=== PATIENT | male | born 1950 | race Caucasian/White ===

== ENCOUNTER 2023-03-19 14:59 | Emergency (ER) | payer OTHER, SELFPAY ==
[2023-03-19 15:11] VITALS: BP 156/83; PULSE 63; RESP 18; TEMP 36.5; O2SAT 97; BMI 40.2
--- NOTE | 2023-03-19 15:37 | ED_ITS ---
HPI - General Adult General Chief complaint: Laceration/Wound Stated complaint: lac R thumb Time Seen by Provider: 03/19/23 15:17 Source: patient Mode of arrival: ambulatory Limitations: no limitations History of Present Illness HPI narrative: 72-year-old male presenting today with a laceration to the right thumb with a saw. The saw slipped. He denies any other injury. Last tetanus was 2013. Related Data Home Medications Medication Instructions Recorded Confirmed amlodipine 5 mg tablet 5 mg PO DAILY 03/19/23 03/19/23 atorvastatin 40 mg tablet 40 mg PO DAILY 03/19/23 03/19/23 dapagliflozin propanediol 10 mg 10 mg PO DAILY 03/19/23 03/19/23 tablet (Farxiga) glipizide 10 mg tablet 10 mg PO BID 03/19/23 03/19/23 lisinopril 20 1 tab PO DAILY 03/19/23 03/19/23 mg-hydrochlorothiazide 25 mg tablet metformin 1,000 mg tablet 1,000 mg PO BID 03/19/23 03/19/23 metoprolol tartrate 100 mg tablet 100 mg PO BID 03/19/23 03/19/23 Allergies Allergy/AdvReac Type Severity Reaction Status Date / Time No Known Drug Allergies Allergy Verified 03/19/23 15:13 Review of Systems Status of ROS: Reports: 6 or more systems reviewed and unremarkable except as noted in History and below [facility] Social History Smoking Status: Never smoker Do you use any of these nicotine containing products: None Second hand tobacco smoke exposure: No How often do you have a drink containing alcohol: 2-3 times a week How many standard drinks containing alcohol do you have on a typical day: 1 or 2 How often do you have six or more drinks on one occasion: Never AUDIT-C Alcohol total score: 3 Non-prescribed substance use: denies use service: No Exam Narrative: Exam Narrative: Well-nourished well-developed patient in no acute distress. Alert and oriented. Answers questions appropriately. Mood and affect are appropriate. Thoughts are goal oriented and rational. No tangential or magical thinking noted. Patient speaks in full sentences without needing to catch his breath. HEENT: Normocephalic atraumatic. Pupils are equally round reactive to light. Extraocular muscles are intact. Conjunctivae are moist without any icterus noted. Moist mucous membranes. Extremity: Patient has approximately a 1 inch laceration on the he medial right thumb next to the nail and extending down a to just distal to the interphalangeal joint. At the base of the laceration there is a chunk of skin that is missing, approximately 6-7 mm in diameter. Laceratio n is fairly superficial penetrating through the dermis just into the subcutaneous tissue. The area with skin missing is just the dermis. Const: Vital Signs, click to edit/add: Vital Signs - 24 hr 03/19/23 15:11 Temperature 97.7 F Pulse Rate [Right Pulse Oximeter] 63 Respiratory Rate 18 Blood Pressure [Ri ght Upper Arm] 156/83 H Pulse Oximetry 97 Oxygen Delivery Me thod Room Air Course Course ED Course: Thumb was irrigated. Laceration was anesthetized with lidocaine. The laceration was cleaned and explored. Three sutures with 3-0 Ethilon were placed on the laceration. The small area with skin missing we were unable to put back together, this area should heal up properly by secondary intention. Tetanus shot updated. Vital Signs Vital signs: Initial Vital Signs Temperature 97.7 F 03/19/23 15:11 Temperature Source Temporal Artery Scan 03/19/23 15:11 Pulse Rate 63 03/19/23 15:11 Respiratory Rate 18 03/19/23 15:11 Blood Pressure 156/83 H 03/19/23 15:11 Blood Pressure Mean 107 H 03/19/23 15:11 Blood Pressure Position Sitting 03/19/23 15:11 Pulse Oximetry 97 03/19/23 15:11 Oxygen Delivery Method Room Air 03/19/23 15:11 Vital Signs Temperature 97.7 F 03/19/23 15:11 Pulse Rate 63 03/19/23 15:11 Respiratory Rate 18 03/19/23 15:11 Blood Pressure 156/83 H 03/19/23 15:11 Pulse Oximetry 97 03/19/23 15:11 Oxygen Delivery Method Room Air 03/19/23 15:11 Temperature 97.7 F 03/19/23 15:11 Pulse Rate 63 03/19/23 15:11 Respiratory Rate 18 03/19/23 15:11 Blood Pressure 156/83 H 03/19/23 15:11 Pulse Oximetry 97 03/19/23 15:11 Oxygen Delivery Method Room Air 03/19/23 15:11 Medical Decision Making MDM Narrative Medical decision making narrative: Laceration treated per above. We discussed wound hygiene, signs symptoms of infection and reasons for follow-up. Suture removal in approximately 1 week. Discharge Plan Discharge Clinical Impression: Laceration Patient Disposition: Home, Self-Care Condition: Stable Additional Instructions: Keep the thumb clean and dry. Okay to shower like you normally would. But do not soak the thumb. Sutures should be removed in approximately 1 week in the clinic with your primary care provider. If the thumb becomes bright red or if there is purulent drainage from the laceration, return to the ER for possible infection. Prescriptions: No Action atorvastatin 40 mg tablet 40 mg PO DAILY metoprolol tartrate 100 mg tablet 100 mg PO BID glipizide 10 mg tablet 10 mg PO BID amlodipine 5 mg tablet 5 mg PO DAILY metformin 1,000 mg tablet 1,000 mg PO BID lisinopril-hydrochlorothiazide 20-25 mg tablet 1 tab PO DAILY Farxiga 10 mg tablet 10 mg PO DAILY Stand Alone Forms: [employer] Info Instructions
== END 2023-03-19 15:51 | disposition home or self-care (01) ==
LOC: ED 15:49
PROVIDERS: Emergency Provider Family Medicine; PCP Family Medicine
DX: S61.011A Laceration without foreign body of right thumb without damage to nail, initial encounter (principal); W27.0XXA Contact with workbench tool, initial encounter; Z23 Encounter for immunization
CPT/HCPCS: 12001; 90471; 99284

== ENCOUNTER 2024-05-19 01:18 | Emergency (ER) | payer MEDICARE, SELFPAY ==
--- OUTSIDE RECORDS SUMMARY | 2024-05-19 01:20 | XMS_ITS | Clinical Summary ---
Author Organization [facility] Address [address] [place] [address] Care Team Providers Care Business Writer Name Role Phone Mir Tejada MD Primary Care Provider Unava ilable Source Comments You are receiving this document as you are listed as the primary care provider,follow-up provider, or the patient has been referred to you for consultation.This is in compliance with the Medicare and[facility] EHR Incentive Program,which states Providers who transition their patient to another setting of careor provider of care or refers their patient to another provider of care shouldprovide summary care record for each transition of care or referral. [employer]New [facility] At [facility] VegasYouLike Allergies No known active allergies Medications aspirin, enteric-coated 81 MG enteric coated tablet Take 81 mg by mouth. 04/14/2011 Active atorvastatin (LIPITOR) 40 MG tablet Take 40 mg by mouth. 06/04/2016 Active lisinopril-hydro chlorothiazide (PRINZIDE;ZESTOR ETIC) 20-25 MG tablet Take 1 Tab by mouth. 06/04/2016 Active glipiZIDE (GLUCOTROL) 10 MG tablet Take 10 mg by mouth. 06/04/2016 Active metFORMIN (GLUCOPHAGE) 1000 MG tablet Take 1,000 mg by mouth. 06/04/2016 Active metoprolol tartrate (LOPRESSOR) 100 MG tablet Take 100 mg by mouth. 06/04/2016 Active multivitamin (THERAGRAN) tablet Take by mouth. 01/31/2007 Active DOCOSAHEXAENOIC ACID OR Take 1,200 mg by mouth. 04/25/2009 Active sildenafil (VIAGRA) 100 MG tablet Take 100 mg by mouth. 04/10/2016 Active Active Problems Problem Noted Date Diagnosed Date Paroxysmal atrial fibrillation 04/14/2011 Type 2 diabetes mellitus with obesity 01/31/2007 Hyperlipidemia 01/31/2007 Hypertension 01/31/2007 Immunizations Immunization Administration Dates Next Due Td 03/26/1993 Social History Tobacco Use Types Packs/Day Years Used Date Smoking Tobacco: Never Alcohol Use Standard Drinks/Week Comments Not Asked 0 (1 standard drink = 0.6 oz pur e alcohol) AUDIT-C Answer Date Recorded Frequency of Alcohol Consumption Never 10/05/2018 Average Number of Drinks Not on file 019 Frequency of Binge Drinking Not on file 09/16 Sex and Gender Information Value Date Recorded Sex Assigned at Not on file Legal Sex Male 3:59 AM CDT Gender Identity Not on file Sexual Orientation Not on file Last Filed Vital Signs Vital Sign Reading Time Taken Comments Blood Pressure 157/95 01/04/2018 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 Pulse 74 01/04/2018 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 Temperature - - Respiratory Rate - - Oxygen Saturation - - Inhaled Oxygen Concentration - - Weight - - Height - - Body Mass Index - - Plan of Treatment Health Maintenance Due Date Last Done Comments Diabetes: Foot Exam 1950 Diabetes: Urine Microalbumin 1950 Hep C Screening (Preventive Services) 1950 Adult Preventive Visit 03/26/1994 03/26/1993 Diabetes: Eye Exam 11/25/1995 11/24/1994, 11/24/1994 Diabetes: Creatinine 09/26/1999 09/25/1998 Diabetes: Lipid Panel 09/26/2003 09/25/1998 Colon Cancer Screening Plan Due 12/04/2011 12/03/2011 Diabetes: HGBA1C 01/14/2019 07/15/2018 Pneumococcal 50+ Yrs (3 of 3 - PCV) 04/10/2021 04/10/2016, 03/27/2014 DTaP/Tdap/Td (2 - Tdap) 07/01/2023 07/01/19 14, 09/19/2003, 03/26/1993 COVID-19 Vaccine (3 - season) 2023 05/10/2020, 04/19/2020 Influenza (#1) 2023 11/01/2019, 02/2018, 12/16/2017, Additional history exists RSV (1 - 1-dose 75+ series) 07/27/2026 Zoster/Shingles Completed 05/24/2018, 08/2018, 06/25/2011 HepA Aged Out No longer eligi ble based on patient's age to complete this topic HepB Aged Out No longer eligi ble based on patient's age to complete this topic Hib Aged Out No longer eligi ble based on patient's age to complete this topic IPV (Polio) Aged Out No longer eligi ble based on patient's age to complete this topic MCV4 Aged Out No longer eligi ble based on patient's age to complete this topic Meningococcal B Aged Out No longer el igible based on patient's age to complete this topic Procedures Procedure Name Priority Date/Time Associated Diagnosis Comments CREATININE Routine 09/25/1998 11:33 AM CDT LIPID PANEL, FAST > 12 HOUR Routine 09/25/1998 11:33 AM CDT from Last 3 Months or Most Recently Relevant to Health Maintenance Results * (ABNORMAL) CHOLESTEROL LIPID PANEL FAST >12HR FAST (09/25/1998 11:33 AM CDT) Cholesterol 209(H) <200 mg/dl [facility] Cholesterol Result should not be interpreted without the patient's history of cardiovascular risk factors. [facility] Triglyceride 390(H) <200 mg/dl [facility] HDL 39 >35 mg/dl [facility] LDL, Calc. 92 mg/dl [facility] Hours Fasting 18 hours [facility] 09/25/1998 11:3 3 AM CDT 09/25/1998 11:34 AM CDT us Barney Akhtar MD LAB_1 Final Result [facility] [address] [id number] * CREATININE (09/25/1998 11:33 AM CDT) Creatinine 1.0 0.5 - 1.2 mg/dl [facility] 09/25/1998 11:3 3 AM CDT 09/25/1998 11:34 AM CDT Barney Akhtar MD LAB_1 Final Result Performing Organization Address City/State/[facility] Co de Phone Number [facility] [address] [place] [phone] from Last 3 Months or Most Recently Relevant to Health Maintenance Insurance [employer]V [employer] Care Teams Business Writer Relationship Specialty Start Date End Date Mir Tejada MD PCP - General Nephrology 12/14/16
--- OUTSIDE RECORDS SUMMARY | 2024-05-19 01:21 | XMS_ITS | Clinical Summary ---
Author Organization [facility] Address [address] [place] [address] Care Team Providers Care Integrated Program Teacher Name Role Phone Mathew Cunningham MD Primary Care Provider Allergies No known active allergies Medications MULTIVITAMIN TAB take 1 tablet by oral route once daily with food 0 02/01/20 07 Active [id number]-[id number] sh Oil 1,200 (144-216) mg CapIndications:Oth er and unspecified hyperlipidemia Take 1,200 mg by mouth once daily. 60 Cap 3 04/26/19 10 Active lancets (ACCU-CHEK MULTICLIX LANCET)Indications :Type II or unspecified type diabetes mellitus without mention of complication, not stated as uncontrolled (HC) As directed. Test 3 times a day 102 Each 5 03/31/19 12 Active blood sugar diagnostic (ACCU-CHEK ERIC PLUS) stripIndications:T ype II or unspecified type diabetes mellitus without mention of complication, not stated as uncontrolled (HC) As directed. Test 3 times a day. 100 Strip 5 03/31/19 12 Active sildenafil citrate (VIAGRA) 100 mg tabletIndications: Erectile dysfunction, unspecified erectile dysfunction type Take 1 tablet by mouth once daily if needed for Erectile Dysfunction . Take 30min to 4 hours before sexual activity. Max 100mg/24hr. 20 tablet 6 11/01/19 20 Active prednisoLONE acetate 1% ophthalmic (ECONOPRED PLUS, PRED FORTE, OMNIPRED) suspensionIndicati ons:Nuclear sclerotic cataract of both eyes START DROPS IN AFFECTED EYE AFTER SURGERY, LEFT EYE 12/09/2023 RIGHT EYE 12/23/2023 . ONE DROP FOUR TIMES A DAY FOR THREE WEEKS. 5 mL 2 12/09/19 24 Active ketorolac 0.4 % (ACULAR LS) 0.4 % ophthalmic solutionIndication s:Nuclear sclerotic cataract of both eyes START DROPS IN AFFECTED EYE AFTER SURGERY, LEFT EYE 12/09/2023 RIGHT EYE 12/23/2023 . ONE DROP FOUR TIMES A DAY FOR THREE WEEKS. 5 mL 2 12/09/19 24 Active apixaban (ELIQUIS) 5 mg tabletIndications: Atrial fibrillation, unspecified type (HC) Take 1 Tablet (5 mg) by mouth two times daily. 180 Tablet 3 12/10/19 Active amLODIPine (NORVASC) 5 mg tabletIndications: Benign essential HTN Take 1 Tablet (5 mg) by mouth once daily. 90 Tablet 3 12/15/19 24 Active atorvastatin (LIPITOR) 40 mg tabletIndications: Mixed hyperlipidemia Take 1 Tablet (40 mg) by mouth once daily. 90 Tablet 3 12/15/19 24 Active dapagliflozin propanediol (Farxiga) 10 mg tabletIndications: Controlled type 2 diabetes mellitus without complication, without long-term current use of insulin (HC) Take 1 Tablet (10 mg) by mouth once daily. 90 Tablet 1 12/15/19 24 Active lisinopril-hydroch lorothiazide, 20-25 mg, (PRINZIDE, ZESTORETIC) 20-25 mg per tabletIndications: Hypertension, unspecified type Take 1 Tablet by mouth once daily. 90 Tablet 3 12/15/19 24 Active metFORMIN (GLUCOPHAGE) 1,000 mg tabletIndications: Controlled type 2 diabetes mellitus without complication, without long-term current use of insulin (HC) Take 1 Tablet (1,000 mg) by mouth two times daily with meals. 180 Tablet 1 12/15/19 24 Active metoprolol tartrate (LOPRESSOR) 100 mg tabletIndications: Hypertension, unspecified type Take 1 Tablet (100 mg) by mouth two times daily. 180 Tablet 3 12/15/19 24 Active glipiZIDE 10 mg tabletIndications: Controlled type 2 diabetes mellitus without complication, without long-term current use of insulin (HC) Take 1 Tablet (10 mg) by mouth two times daily before meals. 180 Tablet 03/26/20 25 Active glipiZIDE (GLUCOTROL) 10 mg tabletIndications: Controlled type 2 diabetes mellitus without complication, without long-term current use of insulin (HC) TAKE 1 TABLET (10 MG) BY MOUTH TWO TIMES DAILY BEFORE MEALS. 180 Tablet 01/08/20 24 025 Discontinued Active Problems Problem Noted Date Diagnosed Date Subclinical hyperthyroidism 12/15/2023 Benign prostatic hyperplasia with incomplete bladder emptying 06/28/2023 Elevated PSA 06/27/2023 Positive for macroalbuminuria 11/26/2021 Controlled type 2 diabetes m ellitus without complication, without long-term current use of insulin 06/02/2017 Colon polyps 06/25/2011 Overview (04/24/2022): Colonoscopy 11/2011 polyp repeat in 5 years Colonoscopy 12/2016 polyp repeat in 5 years Colonoscopy 04/2022 TA, repeat in 7 years Morbid obesity 06/25/2011 Periumbilical hernia 05/08/2010 Other seborrheic keratosis 09/06/2009 Benign essential HTN 01/31/2007 Hyperlipidemia 01/31/2007 Resolved Problems Problem Noted Date Diagnosed Date Resolved Date Urinary tract infection without hematuria 06/28/2023 12/15/2023 Diabetes mellitus type 2 in obese 01/26/2019 11/01/2019 Paroxysmal atrial fibrillation 04/14/2011 10/09/2020 Atrial fibrillation 03/05/2011 04/14/19 12 Erectile dysfunction 04/25/2009 022 Routine general medical exam ination at a health care facility 03/16/2008 04/25/2009 Special screening for malign ant neoplasm of prostate 03/16/2008 04/25/2009 Special screening for malign ant neoplasms, colon 03/16/2008 04/25/2009 Overview (03/16/2008): Recheck 2012 Obesity, unspecified 01/31/2007 012 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 01/31/2007 04/25/2009 Diabetes mellitus type 2 in obese 01/31/2007 06/02/2017 Ingrowing nail 01/20/2007 03/16/2008 DERMATITIS, ECZEMATOUS, EYELID-OS 05/01/2003 03/16/2008 Encounters Date Type Department Care Team Description 05/09/2024 Refill [facility] [address] [address] Mathew Cunningham MD Refill Request (Glipizide) from Last 3 Months Immunizations Immunization Administration Dates Next Due COVID-19 vaccine (Pfizer-Bio NTech 30mcg/0.3mL) 12YO+ BIVALENT PF, MDV 11/11/2021 COVID-19 vaccine (Pfizer-Bio NTech 30mcg/0.3mL) 12YO+ FAYE-SUCROSE PF, MDV 05/21/2021 COVID-19 vaccine (Pfizer-Bio NTech 30mcg/0.3mL) PF, MDV 11/09/2020,05/10/2020,04/19/2020 Hepatitis B (Adult) 01/26/2002,08/10/2001,2001 Influenza A (H1N1), Inactivated 02/11/2009 Influenza A (H1N1), Inactiva raheem (Age >=3 Years) 01/15/2009 Influenza Virus, Unspecified 11/26/2021 Influenza, High-dose Inactivated 024,11/28/2018,12/16/2017,11/22 Influenza, IIV3 (Age >=3 years) 12/16/19 13,10/30/2011,12/17/2010,11/15,12/31/2007,12/16/2006 Influenza, IIV4 11/16/2015,11/16/2014 Influenza, IIV4 (=>6mos) MDV 11/25/2016 Influenza, Inactivated AIIV4 (Age 65+ Years) Preserv Free 11/26/2022,11/26/2021,11/09/2020,10/31 Influenza, Inactivated IIV3 (Age 65+ Years) Preserv Free 11/15/2016 Pneumococcal Conj 20-valent (Prevnar 20) 05/13/2022 Pneumococcal Poly,23-Valent (Pneumovax) 04/10/2016 Pneumococcal conj 13-Valent (Prevnar 13) 03/27/2014 RSV, Recombinant ADJ Reconst ituted (Arexvy 120MCG/0.5mL) 12/09/2022 Td (Age >=7 Years) 09/19/2003,03/26/1993 Tdap 06/30/2013 Zoster (Shingrix-RZV, recombinant) 05/24/2018, Zoster (Zostavax-ZVL, live) 06/25/2011 Family History Medical History Relation Name Comments Other Brother 4 brother with he art valve, CLL, at 75. Diabetes Mother Other Mother d84 lung ca, sm oker Diabetes Sister 1 at 73, fro m covid. Diabetes Sister 2 Diabetes Sister 5 Anesthesia Problem No Family History Cancer-colon No Family History Cancer-prostate No Family History Relation Name Status Comments Brother 1 Alive Brother 2 Alive Brother 3 Alive Brother 4 Father Alive Mother Sister 1 Alive Sister 2 Alive Sister 3 Alive Sister 4 Alive Sister 5 Social History Tobacco Use Types Packs/Day Years Used Date Smoking Tobacco: Never Smokeless Tobacco: Never Tobacco Cessation:Counseling Given: Yes Alcohol Use Standard Drinks/Week Comments Yes 1 (1 standard drink = 0.6 oz pur e alcohol) 12 per month PHQ-2 Answer Date Recorded PHQ-2 TOTAL SCORE 0 12/15/2023 Social Connections Answer Date Recorded Do you often feel lonely or isolated from those around you? 0 04/10/2023 Financial Resource Strain Answer Date R ecorded Difficulty of Paying Living Expenses 3 04/10/2023 Difficulty of Paying Living Expenses Not on file 04/10/2023 Food Insecurity Answer Date Recorded Do you worry your food will run out before you are able to buy more? 1 04/10/2023 Transportation Needs Answer Date Record ed Does lack of transportation keep you from medica l appointments? 1 04/10/2023 Does lack of transportation keep you from work, meetings or getting things that you need? 1 04/10/2023 Housing Stability Answer Date Recorded What is your housing situation today? 1 04/10/2023 Utilities Answer Date Recorded Do you have trouble paying f or utilities (for example, heat, electricity, water, phone)? 1 04/10/2023 Sex and Gender Information Value Date Recorded Sex Assigned at Not on file Legal Sex Male 5:44 AM BUNCH BREAKER Gender Identity Not on file Sexual Orientation Not on file Obstetrics History Last Filed Vital Signs Vital Sign Reading Time Taken Comments Blood Pressure 127/79 01/07/2024 11:43 AM BUNCH BREAKER Pulse 79 01/07/2024 11:43 AM BUNCH BREAKER Temperature 36.2 C (97.2 F) 12/09/2023 7:50 AM CDT Respiratory Rate 16 12/23/2023 9:23 AM BUNCH BREAKER Oxygen Saturation 96% 01/07/2024 11:43 AM BUNCH BREAKER Inhaled Oxygen Concentration - - Weight 126.6 kg (279 lb) 01/07/2024 11:43 AM BUNCH BREAKER Height 173.9 cm (5' 8.47) 12/15/2023 8:11 AM CD T Body Mass Index 41.85 12/15/2023 8:11 AM CDT Plan of Treatment Upcoming Encounters Date Type Department Care Team (Late st Contact Info) Description 07/24/2024 9:40 AM CDT Office Visit [facility] [address] [place] [address] Jermaine Baker MD [address] [place] [address] Health Maintenance Due Date Last Done Comments Tetanus booster 07/01/2023 06/30/2013, 05/2003, 03/26/1993 COVID-19 vaccine series ( season) 2023 11/26/2022, 11/11/2021, 05/21/2021, Additional history exists BMI (ht and wt on same day) for age 18+ 12/14/2024 12/15/2023, 12/03/2023, 06/16/2023, Additional history exists Medicare Wellness for age 65+ 12/15/2024, 11/26/2021, 01/20/2018 Depression screening for age 12+ 12/16/2024 12/17/2023, 12/15/2023, 11/26/2021, Additional history exists Lipids for age 45-75 12/09/2028 12/10/2023, 12/09/2022, 11/25/2021, Additional history exists Colonoscopy through age 75 04/21/202904/21, 04/21/2022, 04/21/2022, Additional history exists Tdap Completed 06/30/2013, 06/30/2013 Hepatitis C screening for ag e 18-79 Completed 11/16/2014 Zoster (shingles) series for age 50+ Completed 05/24/2018, 02/21/2018, 06/25/2011 Pneumococcal series for age 50+ Completed 05/13/2022, 04/10/2016, 03/27/2014 RSV vaccine for adults or Completed 12/09/2022 Influenza Vaccine Completed 11/23/2023, , 11/26/2021, Additional history exists Medical Devices Implanted Type Area [employer]eral [employer] Licensee Device Identifier Shelf Expiration Date Model / Serial / Lot Iol Multi +21.5 [facility] [id number] Implanted:Qty: 1 on 12/09/2023 by Doroteo Willis MD at [facility] Left: Eye [employer] 03/27/2027 CCWET0.215 / [id number] / NA Iol Multi +20.0 [facility] [id number] Implanted:Qty: 1 on 12/23/2023 by Doroteo Willis MD at [facility] Right: Eye [employer] 03/24/2027 CCWET0.200 / [id number] / NA Procedures Procedure Name Priority Date/Time Associated Diagnosis Comments LIPID PANEL W REFLEX MEASURED LDL Routine 12/10/2023 2:17 PM CDT Controlled type 2 diabetes mellitus without complication, without long-term current use of insulin (HC) COLONOSCOPY SCREENING Routine 04/21/2022 8:28 AM BUNCH BREAKER History of colon polyps ANTI HCV Routine 11/16/2014 9:48 AM CDT Need for hepatitis C screening test from Last 3 Months or Most Recently Relevant to Health Maintenance Results * (ABNORMAL) LIPID PANEL W REFLEX MEASURED LDL (12/10/2023 2:17 PM CDT) CHOLESTEROL, TOTAL 124 <200 mg/dL [facility] HDL CHOLESTEROL 38(L) > OR = 40 mg/dL [facility] TRIGLYCERIDES 145 <150 mg/dL [facility] LDL-CHOLESTEROL 63 mg/dL (calc) [facility] Comment: Reference range: <100 Desirable range <100 mg/dL for primary prevention; <70 mg/dL for patients with CHD or diabetic patients with > or = 2 CHD risk factors. LDL-C is now calculated using the Saud calculation, which is a validated novel method providing better accuracy than the Friedewald equation in the estimation of LDL-C. Luiz SUMNER et al. RIC. 2013;310(19): 0831-9945 (http://education.NeuroNascent/faq/YIL203) CHOL/HDLC RATIO 3.3 <5.0 (calc) [facility] NON HDL CHOLESTEROL 86 <130 mg/dL (calc) [facility] Comment: For patients with diabetes plus 1 major ASCVD risk factor, treating to a non-HDL-C goal of <100 mg/dL (LDL-C of <70 mg/dL) is considered a therapeutic option. Blood BLOOD SPECIMEN / Unknown 12/10/2023 2:17 PM CDT 12/10/2023 2:17 PM CDT Mathew Cunningham MD CHEMISTRY Final Result MyCheck [facility] [address] [place] [address], [facility] [address] [place] [address] * COLONOSCOPY (04/21/2022 8:54 AM BUNCH BREAKER) 04/21/2022 8:54 AM BUNCH BREAKER Narrative Transcriptions Luiz Romero MD - 04/21/2022 10:03 AM CST Patient Name: Kev Shannon Procedure Date: 04/21/2022 Gender: Male Date of : 1950 Admit Type: Outpatient Procedure: Colonoscopy Proceduralist: Luiz Romero MD , Cheri Zuluaga (Nurse), Gisselle Ashley (Nurse) Referring MD: Mathew Cunningham Indications/Pre-Op Diagnosis: High risk colon cancer surveillance:Personal history of adenoma less than 10 mm in size, Last colonoscopy: December 2016 Medications: Fentanyl 100 micrograms IV, Midazolam 2 mgIV, The level of sedation administered wasmoderate Procedure Description: The patient had risks, benefits and alternatives explained to andgave informed consent. The patient had a stable cardiopulmonary status and judged an adequate candidate for conscious sedation. The endoscope [id number] was passed through the anus andadvanced to the cecum, identified by appendiceal orifice and ileocecal valve.The colonoscopy was performed without difficulty. The patient toleratedthe procedure well. The quality of the bowel preparation was good. The ileocecal valve, appendiceal orifice, and rectum were photographed. Complications: No immediate complications. Estimated Blood Loss & Specimen: Estimated blood loss: none. Specimen collected - Yes and sent to Laboratory Findings: The perianal and digital rectal examinations were normal. A 2 mm polyp was found in the transverse colon. The polyp wassessile. The polyp was removed with a cold biopsy forceps. Resection and retrieval were complete. Two sessile polyps were found in the transverse colon. The polypswere 3 to 4 mm in size. These polyps were removed with a cold snare.Resection was complete, but the polyp tissue was only partially retrieved. The exam was otherwise without abnormality on direct and retroflexion views. Impressions/Post-Op Diagnosis: - One 2 mm polyp in the transverse colon, removed with a cold biopsy forceps. Resected and retrieved. - Two 3 to 4 mm polyps in the transverse colon, removed with a cold snare. Complete resection. Partial retrieval. - The examination was otherwise normal on direct and retroflexionviews. Recommendation: - Patient has a contact number available for emergencies. The signsand symptoms of potential delayed complications were discussed with the patient. Return to normal activities tomorrow. Written discharge instructions were provided to the patient. - Resume previous diet. - Continue present medications. - Await pathology results. - Repeat colonoscopy for surveillance based on pathology results. Moderate Sedation: A time out was performed before the procedure. Moderate (conscious) sedation was administered by the endoscopy nurse and supervised bythe endoscopist. The following parameters were monitored: oxygensaturation, heart rate, blood pressure, EKG, CO2, respiratory rate, adequacy of pulmonary ventilation and reponse to care. Please refer to the patient's medical record flowsheets and nursing notes for moderate sedation details. Total physician intraservice time was 18 minutes. Luiz Romero MD 04/21/2022 10:03:30 AM This report has been signed electronically. Note Initiated On: 04/21/2022 8:54 AM Procedure Code(s): --- Professional --- 54339, Colonoscopy, flexible; with removalof tumor(s), polyp(s), or other lesion(s) bysnare technique 76032, 59, Colonoscopy, flexible; withbiopsy, single or multiple Diagnosis Code(s): --- Professional --- D12.3, Benign neoplasm of transverse colon (hepatic flexure or splenic flexure) Z86.010, Personal history of colonicpolyps CPT copyright 2020 [employer]. All rights reserved. The codes documented in this report are preliminary and upon fifth grade teacher reviewmay be revised to meet current compliance requirements. Scope In: 9:39:50 AM Scope Withdrawal Time 0 hours 13 minutes 22 seconds Scope Out: 9:56:14 AM us Luiz Romero MD PROCEDURE ORD Final Res ult * ANTI HCV [16897.2] (11/16/2014 9:48 AM CDT) HEPATITIS C ANTIBODY Non-Reacti ve Non-Reacti ve 11/16/2014 5:58 PM CDT [facility] Blood specimen (specimen) BLOOD SPECIMEN / Unknown Venipuncture / Unknown 11/16/2014 9:48 AM CDT 11/16/2014 9:48 AM CDT Narrative [facility] - 11/16/2014 5:58 PM CDT Antibodies to HCV not detected; does not exclude the possibility of exposure to HCV. us Mir Tejada MD SEND OUTS Final Result [facility] [address] [place] [address], [place] from Last 3 Months or Most Recently Relevant to Health Maintenance Insurance [facility] [employer] MR MEDICARE PART A HB ONLY Advance Directives Documents on File Type Date Recorded Patient Chaplain Resident Expl anation Healthcare Directive 08/10/2023 024 Care Teams Integrated Program Teacher Relationship Specialty Start Date End Date Mathew Cunningham MD [address] [place] [address] PCP - General Family Practice 12/07/23
--- OUTSIDE RECORDS SUMMARY | 2024-05-19 01:21 | XMS_ITS | Encounter Summary ---
Author Organization [facility] Address [address], [place] [address] Care Team Providers Care Cloth Bleaching Supervisor Name Role Phone Mir Tejada MD Primary Care Provider Unava ilable Encounter Details Date Type Department Care Team (Latest Contact Info) Description 09/17/1999 Orders Only Andreina Flowers MD [facility] [address] [place] [id number] Social History Tobacco Use Types Packs/Day Years Used Date Smoking Tobacco: Never Assessed Sex and Gender Information Value Date Recorded Sex Assigned at Not on file Legal Sex Male 3:59 AM CDT Gender Identity Not on file Sexual Orientation Not on file documented as of this encounter Plan of Treatment Not on file documented as of this encounter Visit Diagnoses Not on filedocumented in this encounter Care Teams Cloth Bleaching Supervisor Relationship Specialty Start Date End Date Mir Tejada MD PCP - General Nephrology 12/14/16 documented as of this encounter
[2024-05-19 01:24] VITALS: BP 135/83; PULSE 118; RESP 18; TEMP 36.8; O2SAT 96; BMI 39.5
--- NOTE | 2024-05-19 02:02 | ED_ITS ---
HPI - General Adult General Chief complaint: Fall/Minor Trauma Stated complaint: fall from stairs Time Seen by Provider: 05/19/24 01:21 Source: patient Mode of arrival: ambulatory Limitations: no limitations History of Present Illness HPI narrative: 73-year-old male presents ambulatory to the emergency department alone after he had a mechanical fall in his home. He is anticoagulated on Eliquis for AFib. He reports that he is undergoing a bathroom remodel. He had to paint a small portion of a newly installed pony wall prior to the renovation crew coming back in the morning. He apply the 1st ?right after they left this evening and went to apply the 2nd coat prior to going to bed. The door was removed from the door frame and the hinges were exposed. Patient reports that he was caring paint bucket and supplies and missed the last step, falling to the side. He struck his left ear on the door hinge, his left shoulder and wrist on the door frame and then fell to the ground. No loss of consciousness. He has not experienced any headache, vision change, neurological changes of any kind. Notes bleeding from the ear but no other areas. No changes in hearing. He tried to clean things up but noticed that the ear kept bleeding, causing him to come to the emergency department. He fully endorses that this was a mechanical fall. No history of intracranial hemorrhage. No chest pain, shortness of breath or other medical features. Reports that he thinks his last tetanus shot was 2 years ago but it is not documented in the records. Past medical history most notable for history of AFib, diabetes, hypertension. Medications reviewed, accurate is patient reports. Nonsmoker. No recent surgery. ROS is notable for the skin concerns only, otherwise denies times 12 systems. Related Data Home Medications ?Medication ?Instructions ?Recorded ?Confirmed amlodipine 5 mg tablet 5 mg PO DAILY 03/19/23 03/19/23 atorvastatin 40 mg tablet 40 mg PO DAILY 03/19/23 03/19/23 dapagliflozin propanediol 10 mg 10 mg PO DAILY 03/19/23 03/19/23 tablet (Farxiga) glipizide 10 mg tablet 10 mg PO BID 03/19/23 03/19/23 lisinopril 20 1 tab PO DAILY 03/19/23 03/19/23 mg-hydrochlorothiazide 25 mg tablet metformin 1,000 mg tablet 1,000 mg PO BID 03/19/23 03/19/23 metoprolol tartrate 100 mg tablet 100 mg PO BID 03/19/23 03/19/23 Allergies Allergy/AdvReac Type Severity Reaction Status Date / Time No Known Drug Allergies Allergy Verified 03/19/23 15:13 [facility] Social History Smoking Status: Never smoker Do you use any of these nicotine containing products: None Second hand tobacco smoke exposure: No How often do you have a drink containing alcohol: 2-3 times a week How many standard drinks containing alcohol do you have on a typical day: 1 or 2 How often do you have six or more drinks on one occasion: Never AUDIT-C Alcohol total score: 3 Non-prescribed substance use: denies use service: No Exam Const: Vital Signs, click to edit/add: Vital Signs - 24 hr 05/19/24 01:24 Temperature 98.3 F Pulse Rate [Pulse Oximeter] 118 H Respiratory Rate 18 Blood Pressure [Ri ght Upper Arm] 135/83 Pulse Oximetry 96 Oxygen Delivery Me thod Room Air Documenting provider has reviewed patient's vital signs: yes Common normals: no apparent distress and alert General appearance: cooperative and well kempt Other: Good historian. No altered mental status. Story states consistent throughout his encounter, normal polite Banter. Obvious laceration to the left ear, small abrasions on the left wrist as well. HENMT: Other: Scalp rounded with no signs of laceration. No deformity, bruising. With the exception the left ear, the face appears normal with no bruising, deformity or tenderness. Normal opening and closure of the jaw, normal dentition. TMs are normal bilaterally. Right ear normal in appearance. Nose normal. No bleeding. Left ear has a 1.5 cm laceration at the superior pinna where it articulates to the skull. There is a larger triangular flap laceration 2 x 3 cm that encompasses most of the body of the central helix and antihelix into the main body of the ear anteriorly, it does not wrap around posteriorly. Continues to have slight oozing which does improve with pressure. The flap of skin can be reapproximated pretty easily. Eye: Common normals: PERRL, EOMs intact bilaterally and conjunctivae normal General eye: normal appearance of both eyes Conjunctiva: conjunctiva(e) normal Pupil: PERRL Neck & C-Spine: Common normals: full ROM and no lymphadenopathy General: normal visual inspection Cervical spine: cervical ROM normal; no pain with cervical ROM, no cervical spine tenderness and no step off deformity Chest: Common normals: inspection of chest normal and palpation of chest normal Resp: Common normals: normal respiratory effort, no use of accessory muscles and clear to auscultation bilaterally Effort & inspection: able to speak in complete sentences Auscultation: clear to auscultation bilaterally Cardio: Other: Irregular, no murmurs. Positive S1 and S2 Back & Pelvis: Common normals: thoracic and lumbar spine normal to inspection Extremity: Other: Left shoulder with normal active range of motion, no deformity. Left wrist with normal range of motion, no point bony tenderness or deformity. Slight abrasions 2 cm in size x2 noted on dorsal left wrist. Neuro: Common normals: CN's II-XII intact bilaterally, moves all extremities, no focal motor deficits and no sensory deficits noted Sensorium/orientation: alert Cranial nerves: CN normal except as noted Speech: speech normal Gait (neuro): normal gait Motor exam: strength 5/5 throughout, no tremor noted, muscle tone normal throughout and no movement abnormalities noted Psych: Common normals: speech normal Appearance: well kempt Attitude: engaged Speech: normal speech Mood and affect: euthymic mood Insight: insight good Judgement: judgment good Course Course ED Course: 73-year-old male with left ear helix and antihelix laceration, flap. Mild head injury with no signs of concussion or intracranial hemorrhage. Anticoagulant use noted. We discussed the risks and benefits of CT. Fall was from standing height onto carpeted surface, no neurological changes or headache. I recommended we not proceed with CT scan and he is in agreement. He was observed here in the ED for at least an hour which is nearly 2 hours from the time of the accident with no neurological changes. No signs of significant injury to the left shoulder or wrist, x-ray not recommended. Discussed use of Tylenol as needed for discomfort in these areas. I do recommend that he not finish the painting project tonight. Counseled on signs and symptoms of head injury, rest for the next 48 hours, alarm symptoms reviewed that would warrant ED presentatio n. We discussed management of the ear. Because the skin is so delicate in this area, I do not think stitches will hold well. I recommended instead that we do a combination of Steri-Strips and glue. The ear was cleansed with Hibiclens and warm water. No signs of foreign body. The areas then dried and Mastisol was applied, a total of 1 Steri-Strip to the superior lesion and 6 Steri-Strips to t he larger triangular helix and antihelix. Both were then covered with a shell of Dermabond to help reduce the chance of hematoma. This resulted in good hemostasis and no expansion of hematoma underneath. Patient counseled on management. Allow this to set up and dry. Do not pick at the tape or glue. Things will fall off in 1-2 weeks. Counseled that unfortunately due to the poor blood supply in the ear, sometimes ulcerations or complications that lead to deformity can happen. We have done our best to reduce the risk of this today. If there are concerns after the Steri-Strips fall off, would recommend referral to ENT provider. Alarm symptoms reviewed that would warrant ED presentation. He verbalized understanding and agreement. Tetanus shot updated prior to discharge. Vital Signs Vital signs: Initial Vital Signs Temperature 98.3 F 05/19/24 01:24 Temperature Source Temporal Artery Scan 05/19/24 01:24 Pulse Rate 118 H 05/19/24 01:24 Respiratory Rate 18 05/19/24 01:24 Blood Pressure 135/83 05/19/24 01:24 Blood Pressure Mean 100 05/19/24 01:24 Blood Pressure Position Sitting 05/19/24 01:24 Pulse Oximetry 96 05/19/24 01:24 Oxygen Delivery Method Room Air 05/19/24 01:24 Vital Signs Temperature 98.3 F 05/19/24 01:24 Pulse Rate 118 H 05/19/24 01:24 Respiratory Rate 18 05/19/24 01:24 Blood Pressure 135/83 05/19/24 01:24 Pulse Oximetry 96 05/19/24 01:24 Oxygen Delivery Method Room Air 05/19/24 01:24 Temperature 98.3 F 05/19/24 01:24 Pulse Rate 118 H 05/19/24 01:24 Respiratory Rate 18 05/19/24 01:24 Blood Pressure 135/83 05/19/24 01:24 Pulse Oximetry 96 05/19/24 01:24 Oxygen Delivery Method Room Air 05/19/24 01:24 Discharge Plan Discharge Clinical Impression: Laceration of ear, Abrasion of left wrist Patient Disposition: Home, Self-Care Condition: Improved Instructions: Facial Laceration (ED) Additional Instructions: As we discussed, based on your neurological exam, there does not seem to be any sign of major head injury. This can be concerning because of your blood thinners. In your case, this was a small fall and did not seem to cause any major injury. The laceration to your left ear is a flap style triangular laceration where the skin peeled back. Unfortunately, this can disrupt the blood supply to that damaged flap of skin and may take considerable time to heal. Sometimes, the blood flow does not reestablished well and and ulcer can form. I have cleaned out the hematoma, reapplied the flap of skin, covered with additional support from Steri-Strips which is a medical grade tape, and have covered this with a hard shell of medical glue to reinforce the skin and also apply some pressure to help keep the blood from reaccumulating. This will stay on for at least a week, but maybe up to 2 weeks. Please do not peel off the layers, aggressively scrubbed or any other treatments. If the tape and shellfish heal awake, someone with good eyes and a steady hand can gently trim that area away but please do not peel the tape off. If there are any signs of ulceration or significant damage to the ear, please have your primary care doctor refer you to an search consultant like Dr. Gandhi. Unfortunately, even with the best of initial treatment, these complications do sometimes happen because of the unusual blood supply in the ear. There does not seem to be any major injury to your shoulder or wrist. Take Tylenol 1000 mg every 6 hours and no special care is needed to the mild abrasions on the wrist. You may be slightly dizzy, fatigued, lightheaded or slightly foggy in your thinking for the next 48 hours from the mild head injury. Take it easy and I do advise increased rest and not finishing the painting project tonight. Tetanus shot updated today, due again in 10 years. Return to the emergency department if there is persistent vomiting, seizures, loss of consciousness or other signs of neurological changes. Continue taking your blood thinners as prescribed. Activity Level: Activity as Tolerated Discharge Diet: Regular Prescriptions: No Action atorvastatin 40 mg tablet 40 mg PO DAILY metoprolol tartrate 100 mg tablet 100 mg PO BID glipizide 10 mg tablet 10 mg PO BID amlodipine 5 mg tablet 5 mg PO DAILY metformin 1,000 mg tablet 1,000 mg PO BID lisinopril-hydrochlorothiazide 20-25 mg tablet 1 tab PO DAILY Farxiga 10 mg tablet 10 mg PO DAILY Follow Up/Referrals: Mathew Cunningham MD [Primary Care Provider] - Stand Alone Forms: Media Battles Info Instructions
[2024-05-19] MEDS: TETANUS-DIPHTHERIA TOXOIDS/PF 0.5 ML SYRINGE IM (02:04)
--- OUTSIDE RECORDS SUMMARY | 2024-05-19 02:04 | XMS_ITS | Encounter Summary ---
[facility] Address [address], [place] [address] Care Team Providers Care Dye Weigher Helper Name Role Phone Mir Tejada MD Primary Care Provider Unava ilable Encounter Details Date Type Department Care Team (Latest Contact Info) Description 09/17/1999 Orders Only Andreina Flowers MD [facility] [address] [place] [id number] Social History Tobacco Use Types Packs/Day Years [...] on filedocumented in this encounter Care Teams Dye Weigher Helper Relationship Specialty Start Date End Date Mir Tejada MD PCP - General Nephrology 12/14/16 documented as of this encounter
--- OUTSIDE RECORDS SUMMARY | 2024-05-19 02:04 | XMS_ITS | Clinical Summary ---
Author Organization [facility] Address [address] [place] [id number] Care Team Providers Care Technical Operations Vice President Name Role Phone Mathew Cunningham MD Primary Care Provider Allergies No known active allergies Medications MULTIVITAMIN TAB take 1 tablet by oral route once daily with food 0 02/01/20 07 Active Rhbyf-5-CST-EPA-Fi sh Oil 1,200 (144-216) mg CapIndications:Oth er [...] Department Care Team Description 05/09/2024 Refill [facility] [address] [address] Mathew Cunningham MD Refill Request (Glipizide) from [...] on file Legal Sex Male 5:44 AM UNIVERSITY ADMINISTRATOR Gender Identity Not on file Sexual Orientation Not on file Obstetrics History Last Filed Vital Signs Vital Sign Reading Time Taken Comments Blood Pressure 127/79 01/07/2024 11:43 AM UNIVERSITY ADMINISTRATOR Pulse 79 01/07/2024 11:43 AM UNIVERSITY ADMINISTRATOR Temperature 36.2 C (97.2 F) 12/09/2023 7:50 AM CDT Respiratory Rate 16 12/23/2023 9:23 AM UNIVERSITY ADMINISTRATOR Oxygen Saturation 96% 01/07/2024 11:43 AM UNIVERSITY ADMINISTRATOR Inhaled Oxygen Concentration - - Weight 126.6 kg (279 lb) 01/07/2024 11:43 AM UNIVERSITY ADMINISTRATOR Height 173.9 cm (5' 8.47) 12/15/2023 8:11 AM CD T Body Mass Index 41.85 12/15/2023 8:11 AM CDT Plan of Treatment Upcoming Encounters Date Type Department Care Team (Late st Contact Info) Description 07/24/2024 9:40 AM CDT Office Visit [facility] [address] [place] [address] Jermaine Baker MD [address] [place] [address] Health Maintenance Due Date Last Done Comments [...] history exists Medical Devices Implanted Type Area Gear Shaver Set Up Operator Device Identifier Shelf Expiration Date Model / Serial / Lot Iol Multi +21.5 [facility] [id number] Implanted:Qty: 1 on 12/09/2023 by Doroteo Willis MD at [facility] Left: Eye [employer] 03/27/2027 CCWET0.215 / [id number] / NA Iol Multi +20.0 [facility] [id number] Implanted:Qty: 1 on 12/23/2023 by Doroteo Willis MD at [facility] Right: Eye [employer] 03/24/2027 CCWET0.200 / [id number] / NA Procedures Procedure Name Priority Date/Time Associated Diagnosis Comments LIPID PANEL W REFLEX MEASURED LDL Routine 12/10/2023 2:17 PM CDT Controlled type 2 diabetes mellitus without complication, without long-term current use of insulin (HC) COLONOSCOPY SCREENING Routine 04/21/2022 8:28 AM UNIVERSITY ADMINISTRATOR History of colon polyps ANTI HCV Routine [...] LDL-C. Luiz SUMNER et al. RIC. 2013;310(19): 8975-7378 (http://education.OncoEthix/faq/ATV282) CHOL/HDLC RATIO 3.3 <5.0 (calc) [facility] NON HDL CHOLESTEROL 86 <130 mg/dL (calc) [email or web address] Comment: For patients with diabetes plus 1 major ASCVD risk factor, treating to a non-HDL-C goal of <100 mg/dL (LDL-C of <70 mg/dL) is considered a therapeutic option. Blood BLOOD SPECIMEN / Unknown 12/10/2023 2:17 PM CDT 12/10/2023 2:17 PM CDT Mathew Cunningham MD CHEMISTRY Final Result [facility] [address] [place] [address], [email or web address] [address] [place] [address] * COLONOSCOPY (04/21/2022 8:54 AM UNIVERSITY ADMINISTRATOR) 04/21/2022 8:54 AM UNIVERSITY ADMINISTRATOR Narrative Transcriptions Luiz Romero MD - 04/21/2022 [...] adequate candidate for conscious sedation. The endoscope [id number] was passed through the anus andadvanced to [...] 8:54 AM Procedure Code(s): --- Professional --- 75963, Colonoscopy, flexible; with removalof tumor(s), polyp(s), or other lesion(s) bysnare technique 25661, 59, Colonoscopy, flexible; withbiopsy, single or multiple Diagnosis Code(s): --- Professional --- D12.3, Benign neoplasm of transverse colon (hepatic flexure or splenic flexure) Z86.010, Personal history of colonicpolyps CPT copyright 2020 [employer]. All rights reserved. The codes documented in this report are preliminary and upon corporate associate attorney reviewmay be revised to meet current compliance requirements. Scope In: 9:39:50 AM Scope Withdrawal Time 0 hours 13 minutes 22 seconds Scope Out: 9:56:14 AM us Luiz Romero MD PROCEDURE ORD Final Res ult * ANTI HCV [32923.2] (11/16/2014 9:48 AM CDT) HEPATITIS C ANTIBODY Non-Reacti ve Non-Reacti ve 11/16/2014 5:58 PM CDT [facility] Blood specimen (specimen) BLOOD SPECIMEN / Unknown Venipuncture / Unknown 11/16/2014 9:48 AM CDT 11/16/2014 9:48 AM CDT [facility]ative [facility] - 11/16/2014 5:58 PM CDT Antibodies to HCV not detected; does not exclude the possibility of exposure to HCV. us Mir Tejada MD SEND OUTS Final Result [facility] [address] [place] [address], [place] from Last 3 Months or Most Recently Relevant to Health Maintenance [facility] E AETNA MR MEDICARE PART A HB ONLY Advance Directives Documents on File Type Date Recorded Patient [employer] Expl anation Healthcare Directive 08/10/2023 024 Care Teams Technical Operations Vice President Relationship Specialty Start Date End Date Mathew Cunningham MD [address] [place] [address] PCP - General Family Practice 12/07/23
--- OUTSIDE RECORDS SUMMARY | 2024-05-19 02:04 | XMS_ITS | Clinical Summary ---
Author Organization [facility] Address [address] [place] [address] Care Team Providers Care Telesales Advisor Name Role Phone Mir Tejada MD Primary Care Provider Unava ilable Source Comments You are receiving this document as you are listed as the primary care provider,follow-up provider, or the patient has been referred to you for consultation.This is in compliance with the Medicare and[facility] Hospitalca[facility] EHR Incentive Program,which states Providers who transition their patient to another setting of careor provider of care or refers their patient to another provider of care shouldprovide summary care record for each transition of care or referral. [facility] [employer] Allergies No known active allergies Medications aspirin, [...] Comments Blood Pressure 157/95 01/04/2018 12:29 PM COMMERCIAL LITIGATION ATTORNEY Pulse 74 01/04/2018 12:29 PM COMMERCIAL LITIGATION ATTORNEY Temperature - - Respiratory Rate - - [...] 11:33 AM CDT) Cholesterol 209(H) <200 mg/dl [facility] Cholesterol Result should not be interpreted without the patient's history of cardiovascular risk factors. [facility] Triglyceride 390(H) <200 mg/dl [facility] HDL 39 >35 mg/dl [facility] LDL, Calc. 92 mg/dl [facility] Hours Fasting 18 hours [facility] 09/25/1998 11:3 3 AM CDT 09/25/1998 11:34 AM CDT us Barney Akhtar MD LAB_1 Final Result [facility] [address] [address] * CREATININE (09/25/1998 11:33 AM CDT) Creatinine 1.0 0.5 - 1.2 mg/dl [facility] 09/25/1998 11:3 3 AM CDT 09/25/1998 11:34 AM CDT Barney Akhtar MD LAB_1 Final Result Performing Organization Address City/State/[facility] Co de Phone Number [facility] [address] [place] [phone] from Last 3 Months or Most Recently Relevant to Health Maintenance Insurance [employer] PREVENTIVE SR PREV ONE[employer]IT Care Teams Telesales Advisor Relationship Specialty Start Date End Date Mir Tejada MD PCP - General Nephrology 12/14/16
[2024-05-19 02:12] VITALS: BP 126/87; PULSE 84; RESP 18; TEMP 36.8; O2SAT 98
[2024-05-19 02:33] VITALS: BP 126/87; PULSE 84; RESP 18; TEMP 36.8
== END 2024-05-19 02:33 | disposition home or self-care (01) ==
PROVIDERS: Emergency Provider Family Medicine; PCP Family Medicine
DX: S01.312A Laceration without foreign body of left ear, initial encounter (principal); S60.812A Abrasion of left wrist, initial encounter; W01.198A Fall on same level from slipping, tripping and stumbling with subsequent striking against other object, initial encounter; Z23 Encounter for immunization
CPT/HCPCS: 12011; 90471; 90714; 99283